=== PATIENT | female | born 1960 | race Caucasian/White ===

== ENCOUNTER 2020-09-28 16:55 | Emergency (ER) | payer SELFPAY ==
[2020-09-28 17:03] VITALS: BP 105/69
[2020-09-28] MEDS ORDERED: DEXAMETHASONE 10 MG/ML VIAL PO STA (17:18)
[2020-09-28] MEDS ORDERED: KETOROLAC 60 MG/2 ML VIAL IM STA (17:18)
[2020-09-28] MEDS ORDERED: CHERRY SYRUP 10 ML UDC PO ONE (17:18)
--- NOTE | 2020-09-28 17:20 | ED Physician Documentation ---
PD HPI UPPER EXT INJURY - Stated complaint Stated Complaint: LT WRIST PX - Chief complaint Chief Complaint: Ext Problem - History obtained from History obtained from: Patient, Family - History of Present Illness Location: Left, Wrist Type of injury: Other (Overuse) Where injury occurred: Home Timing - onset: How many days ago (2) Timing - duration: Days (2) Timing - details: Gradual onset, Still present Improved by: Rest, Immobilization Worsened by: Moving, Palpating Associated symptoms: Swelling. No: Weakness, Numbness, Tingling Contributing factors: No: Anticoagulated Similar symptoms before: Diagnosis (tendonitis) Recently seen: Not recently seen - Additonal information Additional information: 59-year-old female with a history of tendinitis to her right wrist has had prior tendon injections with improvement. She has been moving and she has been doing a lot of work. Her wrist began to bother her last week and she bought a wrist splint and yesterday she went out kayaking. Last night she began to experience severe pain and the pain will not let up she has severe pain if she moves the wrist at all. She is developed some numbness in her hand and her hand associated with all this. Review of Systems Constitutional: denies: Fever Eyes: denies: Decreased vision Ears: denies: Ear pain Nose: denies: Congestion Throat: denies: Sore throat Cardiac: denies: Chest pain / pressure Respiratory: denies: Dyspnea, Cough GI: denies: Vomiting PD PAST MEDICAL HISTORY - Present Medications Home Medications: Ambulatory Orders Medication Instructions Recorded Confirmed Dicyclomine [Bentyl] 10 mg ORAL DAILY 09/28/20 09/28/20 HYDROcod/ACETAM 5/325 [[place] 5/325] 1 - 2 tablet PO Q6H PRN #14 tablet 09/28/20 - Allergies Allergies/Adverse Reactions: Allergies Allergy/AdvReac Type Severity Reaction Status Date / Time No Known Drug Allergies Allergy Verified 09/28/20 16:59 PD ED PE NORMAL - Vitals Vital signs reviewed: Yes (Normal) - General General: Alert and oriented X 3, Well developed/nourished, Other (The patient is in tears with pain) - HEENT HEENT: Atraumatic, PERRL, EOMI - Respiratory Respiratory: No respiratory distress - Derm Derm: Normal color, Warm and dry, No rash - Extremities Extremities: No deformity, No edema, Other (marked tenderness to the ulnar s tyloid area and pain with movement of the wrist. No deformity. distal n/v intact. ) - Neuro Neuro: Alert and oriented X 3, plasma processor 2-12 intact, No motor deficit, No sensory deficit, Normal speech Eye Opening: Spontaneous Motor: Obeys Commands Verbal: Oriented GCS Score: 15 - Psych Psych: Normal mood, Normal affect Results - Vitals Vitals: Vital Signs - 24 hr 09/28/20 17:00 Temperature 36.5 C Heart Rate 60 Respiratory 16 Rate Blood Pressure 105/69 O2 Saturation 99 Oxygen O2 Source Room air - Rads (name of study) wrist Radiology: Prelim report reviewed (Impression: No fracture. No osseous lesion.), EMP read indepedently, See rad report Procedures - Splint (location) left wrist Splint applied by: Tech Type of splint: Fiberglass, Volar cock up Other: Patient tolerated well, No complications, Neurovascular intact, Good alignment PD MEDICAL DECISION MAKING - ED course Complexity details: reviewed old records, reviewed results, re-evaluated patient, considered differential, d/w patient, d/w family ED course: 59-year-old female with a prior history of tendinitis has developed tendinitis in her left wrist. She has exquisite tenderness and she does not have that much in the way of swelling. X-rays without evidence of fracture malalignment. The patient is administered dexamethasone 10 mg orally and 60 mg of Toradol IM. She is placed into a volar splint given a note for work placed on pain medication as needed and referred to orthopedics for potential tendon injection. Departure - Departure Disposition: 01 Home, Self Care Clinical Impression: Tendinitis Condition: Stable Instructions: Tendonitis and Tenosynovitis Follow-Up: King Calloway MD [Provider Admit Priv/Credential] - Prescriptions: HYDROcod/ACETAM 5/325 [[place] 5/325] 1 - 2 tablet PO Q6H PRN #14 tablet PRN Reason: Pain Forms: Activity restrictions
--- NOTE | 2020-09-28 17:33 | XRAY Report ---
PROCEDURE: Wrist 2 View LT INDICATIONS: ulnar pain TECHNIQUE: 2 views of the wrist were acquired. COMPARISON: None FINDINGS: Bones: No fractures or dislocations. No suspicious bony lesions. Soft tissues: No suspicious soft tissue calcifications. IMPRESSION: No fracture. No osseous lesion. If there are persistent symptoms or continued clinical concern for pa thology, then repeat plain film radiographs (7-10 days) or advanced imaging (CT, MR, bone scan) shoul d be considered for further evaluation. Reviewed by: Edyta Calderón MD, PhD on 09/28/2020 5:32 PM PDT Approved by: Edyta Calderón MD, PhD on 09/28/2020 5:32 PM PDT Station ID: [id number]
== END 2020-09-28 18:38 | disposition home or self-care (01) ==
LOC: ED 16:55
DX: M77.8 Other enthesopathies, not elsewhere classified (principal); M25.532 Pain in left wrist
CPT/HCPCS: 29125; 73100; 96372; 99283; 99284; A9270